=== PATIENT | female | born 1960 | race Caucasian/White ===

== ENCOUNTER 2016-09-24 00:43 | Emergency (ER) | payer SELFPAY ==
[2016-09-24 00:55] VITALS: BP 121/61
[2016-09-24] MEDS ORDERED: traMADol TAB* 50 MG PO ONE (02:19)
--- NOTE | 2016-09-24 07:11 | RAD ---
INDICATION: Right shoulder pain. TECHNIQUE: 4 views of the right shoulder were obtained. FINDINGS: The bones are in normal alignment. No fracture is seen. There is mild to moderate osteoarthritic change in the acromioclavicular joint and mild osteoarthritic change in the glenohumeral joint. IMPRESSION: MILD TO MODERATE OSTEOARTHRITIC CHANGE.
--- NOTE | 2016-11-04 21:49 | ED ---
Upper Extremity Pain - HPI Summary HPI Summary: pt with rt shoulder pain, original chart done on paper due to down time and was lost - History of Current Complaint Chief Complaint: Bella Stated Complaint: RT SHOULDER PAIN Time Seen by Provider: 09/24/16 01:21 Hx Obtained From: Patient Mechanism Of Injury: Fall From A Standing Position Onset/Duration: Started Hours Ago Timing: Constant Severity Initially: Mild Severity Currently: Mild Pain Location: Shoulder Associated Signs & Symptoms: Positive: Negative - Risk Factors Non-Orthopedic Risk Factor: Negative - Allergies/Home Medications Allergies/Adverse Reactions: Allergies Allergy/AdvReac Type Severity Reaction Status Date / Time Acetaminophen Allergy Swelling Verified 09/24/16 00:56 [From Excedrin P.M.] Amoxicillin [From Augmentin] Allergy Vomiting Verified 09/24/16 00:55 Clavulanic Acid Allergy Vomiting Verified 09/24/16 00:55 [From Augmentin] Diphenhydramine Allergy Swelling Verified 09/24/16 00:56 [From Excedrin P.M.] PMH/Surg Hx/FS Hx/Imm Hx Previously Healthy: Yes Infectious Disease History: Denies: Traveled Outside the [place] in Last 30 Days - Social History Alcohol Use: None Substance Use Type: Reports: None Smoking Status (MU): Never Smoked Tobacco Review of Systems All Other Systems Reviewed And Are Negative: Yes Physical Exam Triage Information Reviewed: Yes Vital Signs On Initial Exam: Initial Vitals Temp Pulse Resp BP Pulse Ox 98.3 F 77 16 121/61 97 09/24/16 00:50 09/24/16 00:50 09/24/16 00:50 09/24/16 00:50 09/24/16 00:50 Vital Signs Reviewed: Yes Appearance: Positive: Well-Appearing, Pain Distress - mild Skin: Positive: Warm Head/Face: Positive: Normal Head/Face Inspection ENT: Positive: Hearing grossly normal Musculoskeletal: Positive: Other - rt shoulder without deformity, pain with movement Neurological: Positive: Sensory/Motor Intact, NV Bundle Intact Distally Psychiatric: Positive: Affect/Mood Appropriate Diagnostics - Vital Signs Vital Signs Temp Pulse Resp BP Pulse Ox 09/24/16 00:50 98.3 F 77 16 121/61 97 - Laboratory Lab Statement: Any lab studies that have been ordered have been reviewed, and results considered in the medical decision making process. Course/Dx - Diagnoses Provider Diagnoses: Shoulder sprain Discharge - Discharge Plan Condition: Stable Disposition: HOME Prescriptions: traMADol TAB* [Ultram*] 50 mg PO Q6HR PRN #20 tab MDD 4 PRN Reason: Pain Patient Education Materials: Shoulder Pain (ED) Forms: *Work Release Referrals: Milton MINAYA,Brady Jaimes [Medical Doctor] - Additional Instructions: Rest with sling as needed - do not leave in sling for prolonged periods however to prevent risk of "frozen shoulder" Ice alternating with heat May continue ibuprofen with food alternating with acetaminophen May also take tramadol as needed for pain keeping you up at night Follow-up with orthopedic provider - call Monday to schedule an appointment with [facility] - contact information provided here.
== END 2016-09-24 02:53 | disposition home or self-care (01) ==
LOC: ED 00:43
DX: S43.401A Unspecified sprain of right shoulder joint, initial encounter (principal); M25.511 Pain in right shoulder; X58.XXXA Exposure to other specified factors, initial encounter; Y93.9 Activity, unspecified; Y92.9 Unspecified place or not applicable
CPT/HCPCS: 99282; A9270-GY